=== PATIENT | female | born 1955 | race Caucasian/White ===

== ENCOUNTER 2021-09-02 15:44 | Observation (INO) | payer BC ==
[2021-09-02 16:02] VITALS: BMI 21.2
[2021-09-02] MEDS ORDERED: Ondansetron PF 4 MG/2 ML Vial IVP PRN (16:29)
[2021-09-02] MEDS ORDERED: Ondansetron ODT 4 MG TAB PO PRN (16:29)
[2021-09-02] MEDS ORDERED: Guaifenesin DM 100-10/5 ML UDCUP PO PRN (16:29)
[2021-09-02] MEDS ORDERED: Senokot S 8.6-50 MG TAB PO PRN (16:29)
[2021-09-02] MEDS ORDERED: hydrALAZINE 20 MG/ML VIAL SLOW IVP PRN (17:52)
[2021-09-02] MEDS: Acetaminophen 325 MG TAB PO PRN ×2 (18:31→23:20)
[2021-09-02 20:02] LABS: Troponin I Less than 0.010 ng/mL (< 0.028)
[2021-09-02] MEDS: Famotidine 20 MG TAB PO SCH (21:14)
[2021-09-02] MEDS: Atorvastatin Calcium 40 MG TAB PO SCH (21:14)
[2021-09-02] MEDS: traZODone HCl 50 MG TAB PO PRN (21:37)
[2021-09-02 23:08] LABS: Troponin I Less than 0.010 ng/mL (< 0.028)
[2021-09-02] MEDS: HYDROcodone/Acetaminophen 5/325 mg Tablet PO PRN (23:19)
[2021-09-03 04:58] LABS: #Eosinphils 0.1 10x3/uL (0.0-0.5); #Monocytes 0.5 10x3/uL (0.0-1.1); %Basophils 0.6 % (0.0-2.0); %Eosinophils 2.4 % (0.0-6.0); %Monocytes 10.1 % (0.0-10.0); %Neutrophils 43.7 % (40.0-75.0); Hemoglobin 12.4 g/dL (12.0-15.5); Mean Corpuscular HGB CONC 34.3 g/dL (32.0-36.0); Mean Corpuscular Hemoglobin 32.2 pg (27.0-33.0); Mean Corpuscular Volume 93.8 fl (81.6-98.3); Mean Platelet Volume 9.3 fl (7.4-10.4); Platelet Count 179 10x3/uL (150-450); RBC Distribution Width 13.2 % (11.5-14.5); Red Blood Cell (RBC) Count 3.85 10x6/uL (3.90-5.03); White Blood Cell (WBC) Count 4.7 10x3/uL (3.5-10.5)
[2021-09-03 05:12] LABS: Anion Gap 13 mmol/L (10-20); BUN (Urea Nitrogen) 12 mg/dL (9.8-20.1); Calc. Creatinine Clearance 75 mL/min (70-130); Carbon Dioxide 24 mmol/L (23-31); Chloride 106 mmol/L (98-107); Potassium 3.7 mmol/L (3.5-5.1); Sodium 139 mmol/L (136-145)
[2021-09-03 05:13] LABS: Calcium 8.9 mg/dL (7.8-10.44); Glucose 81 mg/dL (80-115)
[2021-09-03] MEDS: Famotidine 20 MG TAB PO SCH ×2 (08:55→20:17)
[2021-09-03] MEDS: Aspirin 81 mg Enteric Coated Tablet PO SCH (08:56)
[2021-09-03] MEDS ORDERED: Enoxaparin Sodium 40 MG/0.4 ML SYRINGE SC SCH (09:00)
[2021-09-03] MEDS: Acetaminophen 325 MG TAB PO PRN (15:08)
[2021-09-03] MEDS ORDERED: Communication Order-Pharmacy FS SCH (15:45)
[2021-09-03] MEDS ORDERED: Amlodipine 5 MG TAB PO SCH (16:00)
[2021-09-03] MEDS: Sodium Chloride 0.9% 1,000 ML IV SCH (16:57)
[2021-09-03] MEDS: Atorvastatin Calcium 40 MG TAB PO SCH (20:17)
[2021-09-03] MEDS: HYDROcodone/Acetaminophen 5/325 mg Tablet PO PRN (20:25)
[2021-09-03] MEDS: traZODone HCl 50 MG TAB PO PRN (20:25)
[2021-09-04] MEDS: Sodium Chloride 0.9% 1,000 ML IV SCH (02:24)
[2021-09-04 05:01] LABS: #Eosinphils 0.1 10x3/uL (0.0-0.5); #Monocytes 0.5 10x3/uL (0.0-1.1); #Neutrophils 2.9 10x3/uL (1.5-8.4); %Basophils 0.6 % (0.0-2.0); %Eosinophils 1.9 % (0.0-6.0); %Lymphocytes 31.1 % (18.0-47.0); %Monocytes 9.5 % (0.0-10.0); %Neutrophils 56.7 % (40.0-75.0); Hemoglobin 12.7 g/dL (12.0-15.5); Mean Corpuscular HGB CONC 33.3 g/dL (32.0-36.0); Mean Corpuscular Hemoglobin 32.2 pg (27.0-33.0); Mean Corpuscular Volume 96.5 fl (81.6-98.3); Mean Platelet Volume 9.5 fl (7.4-10.4); Platelet Count 182 10x3/uL (150-450); RBC Distribution Width 12.9 % (11.5-14.5); Red Blood Cell (RBC) Count 3.95 10x6/uL (3.90-5.03); White Blood Cell (WBC) Count 5.2 10x3/uL (3.5-10.5)
[2021-09-04 05:06] LABS: ALT (SGPT) 15 U/L (8-55); AST (SGOT) 18 U/L (5-34); Albumin 3.9 g/dL (3.4-4.8); Alkaline Phosphatase 44 U/L (40-110); Anion Gap 13 mmol/L (10-20); BUN (Urea Nitrogen) 15 mg/dL (9.8-20.1); Bilirubin, Total 0.6 mg/dL (0.2-1.2); Calc. Creatinine Clearance 72 mL/min (70-130); Calcium 8.8 mg/dL (7.8-10.44); Carbon Dioxide 25 mmol/L (23-31); Chloride 108 mmol/L (98-107); Glucose 83 mg/dL (80-115); Protein, Total 5.9 g/dL (5.8-8.1); Sodium 142 mmol/L (136-145)
[2021-09-04 05:12] LABS: PTT 28.7 sec (22.0-33.0); Prothrombin Time 10.7 sec (9.5-12.1)
[2021-09-04] MEDS: Famotidine 20 MG TAB PO SCH (05:59)
[2021-09-04] MEDS: Aspirin 81 mg Enteric Coated Tablet PO SCH (05:59)
[2021-09-04] MEDS ORDERED: Amlodipine 5 MG TAB PO SCH ×2 (06:00→09:00)
[2021-09-04] MEDS ORDERED: Nitroglycerin 50 MG/250 ML BOT 250 ML ONE (07:23)
[2021-09-04] MEDS ORDERED: Heparin 10,000 UNITS/ 10 ML VIAL ONE (07:23)
[2021-09-04] MEDS ORDERED: Verapamil 5 MG/2 ML VIAL ONE (07:24)
[2021-09-04] MEDS ORDERED: Adenosine 6 MG/2 ML VIAL ONE (07:24)
[2021-09-04] MEDS ORDERED: Bivalirudin 250 MG VIAL ONE (07:25)
[2021-09-04] MEDS ORDERED: Lidocaine 1% MPF 2 ML VIAL ONE (07:25)
[2021-09-04] MEDS ORDERED: Fentanyl 100 MCG/2 ML VIAL ONE (07:26)
[2021-09-04] MEDS ORDERED: Midazolam HCl 2 mg/2 ml Vial ONE (07:26)
[2021-09-04 07:30] VITALS: TEMP 97.6
[2021-09-04] MEDS ORDERED: Nitroglycerin 0.4 MG TAB (25 Tab Bottle) SL PRN (08:42)
[2021-09-04] MEDS ORDERED: Acetaminophen/Codeine 30-300mg Tablet PO PRN ×2 (08:42)
[2021-09-04] MEDS ORDERED: Sodium Chloride 0.9% 200 ML IV PRN (08:42)
[2021-09-04] MEDS ORDERED: Lorazepam 2 MG/ML VIAL SLOW IVP SCH (10:00)
[2021-09-04 12:19] VITALS: BP 123/66
[2021-09-04] MEDS ORDERED: Iopamidol 300 61% 100 ML VIAL FS ONE (15:20)
[2021-09-05] MEDS ORDERED: Amlodipine 5 MG TAB PO SCH (09:00)
== END 2021-09-04 16:29 | disposition home or self-care (01) ==
LOC: CSHTELE 15:44
PROVIDERS: ADMIT Hospitalist; ATTEND Hospitalist
DX: R07.89 Other chest pain (principal); R20.0 Anesthesia of skin; I11.9 Hypertensive heart disease without heart failure; E78.5 Hyperlipidemia, unspecified; M48.061 Spinal stenosis, lumbar region without neurogenic claudication; M51.36 Other intervertebral disc degeneration, lumbar region; Z20.822 Contact with and (suspected) exposure to COVID-19; Z79.82 Long term (current) use of aspirin; Z79.899 Other long term (current) drug therapy; Z86.73 Personal history of transient ischemic attack (TIA), and cerebral infarction without residual deficits
CPT/HCPCS: 36415; 70450; 72148; 80048; 80053; 82088; 83835; 84244; 85025; 85610; 85730; 93005; 93010; 93458; 96372; 96374; 99152; C1769; C1894; G0378; J0153; J0583; J1644; J1650; J2060; J2250; J3010; J7050; Q9967; U0003; U0005